=== PATIENT | male | born 1970 | race Caucasian/White ===

== ENCOUNTER 2020-11-11 19:29 | Emergency (ER) | payer MEDICAID ==
[~2020-11-11] VITALS: Ht 167.6 cm; Wt 86.2 kg
[2020-11-11 19:35] VITALS: BP 129/74
--- NOTE | 2020-11-11 20:00 | NUR ---
ATTEMPTED TO CALL PT FROM LOBBY TO ROOM X 1. PT OUTSIDE ON HIS TELEPHONE AT THIS TIME. REFRIGERATED NATIONAL TRUCK DRIVER NOTIFIED
--- NOTE | 2020-11-11 20:04 | NUR ---
LIGHT OUT EXAMINER: PT OUTSIDE ON PHONE WHEN CALLED FROM LOBBY FOR A ROOM.
--- NOTE | 2020-11-11 20:13 | NUR ---
ATTEMPTED TO CALL PT FROM LOBBY TO ROOM X 2. PER PT "I'M NOT READY YET. I HAVE ANOTHER PHONE CALL I'M WAITING FOR. I'LL LET YOU KNOW WHEN I WANT TO GO BACK TO MY ROOM". FLAKE CUTTER OPERATOR, LUIS FERNANDO, NOTIFIED.
--- NOTE | 2020-11-11 20:41 | NUR ---
EMPLOYER RELATIONS REPRESENTATIVE: PT NOT IN LOBBY WHEN CALLED FOR A ROOM. PT ASSUMED TO HAVE LEFT
== END 2020-11-11 20:44 | disposition left against medical advice (07) ==
LOC: ED 20:38
DX: R06.02 Shortness of breath (principal); R06.89 Other abnormalities of breathing; R53.83 Other fatigue; Z53.21 Procedure and treatment not carried out due to patient leaving prior to being seen by health care provider
CPT/HCPCS: 93005